=== PATIENT | female | born 1965 | race Caucasian/White ===

== ENCOUNTER 2017-08-29 09:08 | Day surgery (SDC) | payer OTHER ==
[~2017-08-29 09:08] MED LIST: RINGER'S SOLUTION,LACTATED 1,000 ML IV PRN; ROPIVACAINE HCL/PF 40 MG in NORMAL SALINE 16 ML IJ PRN; ceFAZolin SODIUM 1 GM VIAL IV PRN
[2017-08-29] MEDS ORDERED: RINGER'S SOLUTION,LACTATED 1,000 ML IV ONE (10:02)
[2017-08-29] MEDS ORDERED: BUPIVACAINE HCL/EPINEPHRINE 50 ML VIAL IJ ONE (11:00)
[2017-08-29 13:18] VITALS: BP 115/70
--- NOTE | 2017-09-04 09:04 | OR ---
Operative Report - Dictated Report Narrative: Date: 08/29/2017 Physician: Ruben Barriga M.D. Operations Support Analyst: Owen Cerda PA-C Preoperative diagnosis: Left Knee medial meniscus tear, Porter's cyst Postoperative diagnosis: Left Knee medial meniscus tear, Porter's cyst Procedure: Left knee arthroscopy with partial medial meniscectomy, aspiration of Porter cyst Anesthesia: MAC Plus local Complications: None Estimated blood loss: Minimal Tourniquet time: None Specimens: Porter cyst fluid for disposal Retained implants: None Drains: None Indications: Mrs. Grullon Is a 51 year-old female who has been followed in my clinic with complaints of knee pain consistent with suspected medial joint pathology. Physical exam and diagnostic imaging were consistent with these complaints and concern for medial meniscus pathology. Conservative measures have failed including, but not limited to, passage of time, activity modification, medications, and injections. The risks, benefits, and alternatives were discussed in clinic. The risks being , bleeding, infection, blood clots, nerve, tendon, ligament, blood vessel injury, persistent pain, arthrosis, need for additional procedures, and persistent symptoms. Consent was obtained in the clinic. Procedure: After marking the correct extremity in the preoperative holding area, a timeout was performed in the operating room. IV antibiotics consisting of Ancef were administered prior to the procedure. A well-padded tourniquet was applied to the operative upper thigh. The leg was prepped and draped in a standard sterile fashion. 0.25% Marcaine with epinephrine was infused into the projected portal sites as well as the intra-articular space. A rohan incision was made for inferior lateral portal. A blunt trocar and cannula was introduced into the knee. The suprapatellar pouch revealed no pathology. The medial patella facet showed grade 2 change. The lateral patella facet showed grade 1 change. The trochlea showed no significant arthrosis. The medial gutter revealed pathology. The medial joint space was then entered utilizing a lateral post and valgus stress. A spinal needle was utilized for guidance into placement of an anterior medial portal. This was placed just superior to the medial meniscus ensuring that we could reach the posterior aspect of the medial joint space. A rohan incision was made in the site, and the probe was introduced to the knee. The medial joint space was examined, and the medial femoral condyle showed grade 2 change. The medial tibial plateau showed grade 2 change. The medial meniscus had a complex tear of the middle and posterior portion. The notch was then examined, and the ACL was noted to be intact. The PCL was noted to be intact. The lateral joint space was then examined using a varus force in the figure 4 position. Lateral femoral condyle showed no significant arthrosis. Lateral tibial plateau showed grade 1 change. The lateral meniscus showed no tear. The lateral gutter showed no pathology. Having identified the surgical pathology, a series of biters and dona were utilized in order to debride the middle and posterior portions of the medial meniscus to a depth of approximately 30%. Once it was felt that we adequately addressed the pathology, the knee was thoroughly irrigated. The fluid was evacuated ensuring that we have removed all meniscal, chondral, and any other loose bodies. A final evaluation of the joint showed no additional pathology. The fluid was then evacuated of the knee, and the trocar and camera were removed from the joint. Utilizing a spinal needle Porter's cyst was then aspirated and we were able to evacuate approximately 10 mL of viscous synovial fluid. The wounds were closed with interrupted nylon after placing 20 mL of 0.2 % ropivacaine into the joint. Dressings consisting of Xeroform, 4 x 4, ABD, soft roll, and an Salvador were applied. All sponge, needle, blade, and instrument counts were correct prior to closing the wounds. The patient was awoken and transferred to the postanesthesia care unit in stable condition.
== END 2017-08-29 09:09 | disposition home or self-care (01) ==
LOC: AMB 09:08
PROVIDERS: ATTEND Orthopaedic Surgery
PROC: 0S9D3ZZ Drainage of Left Knee Joint, Percutaneous Approach (ICD-10-PCS; 2017-08-29)
PROC: 0SBD4ZZ Excision of Left Knee Joint, Percutaneous Endoscopic Approach (ICD-10-PCS; principal; 2017-08-29 11:40)
DX: M23.232 Derangement of other medial meniscus due to old tear or injury, left knee (principal); M71.22 Synovial cyst of popliteal space [Baker], left knee; I10 Essential (primary) hypertension; F31.9 Bipolar disorder, unspecified; F41.9 Anxiety disorder, unspecified; F17.200 Nicotine dependence, unspecified, uncomplicated; Z68.1 Body mass index [BMI] 19.9 or less, adult